=== PATIENT | male | born 1935 | race Caucasian/White ===

== ENCOUNTER 2017-01-13 08:52 | Emergency (ER) | payer OTHER, BC ==
[~2017-01-13] VITALS: Ht 188 cm; Wt 120.7 kg
[~2017-01-13 08:52] MED LIST: ASPIRIN E.C.81 M1 PO; ASPIRIN EC325 MG PO; CARDIZEM60 MG PO; CIPRO500 MG PO; Cordarone, Pacerone PO; DAILY VALUE1 EACH PO; FINASTERIDE5 MG PO; FLAGYL500 MG PO; FLOMAX0.4 MG PO; KEFLEX500 MG PO; METOPROLOL SUCC25 MG PO; NOHOMEMEDS; ODOR FREE GARL1 EAC1 PO; PACERONE200 M1 PO; PERCOCET 5/31 TABLET PO; VITAMIN D35000 UNIT PO
[2017-01-13] MEDS ORDERED: ODOR FREE GARL1 EACH PO (09:00)
[2017-01-13] MEDS ORDERED: ASPIR 8181 M1 PO (09:00)
[2017-01-13 09:19] LABS: ADD MIUA? YES; BILIRUBIN NEGATIVE; BLOOD NEGATIVE; COLOR YELLOW ((YELLOW)); GLUCOSE (STRIP) NEGATIVE; KETONES NEGATIVE; LEUKOCYTES TRACE; NITRITE NEGATIVE; PROTEIN (STRIP) 30; UROBILINOGEN 0.2 MG/DL (0.2-1.0)
[2017-01-13 09:26] LABS: BACTERIA 1+ /HPF; EPITHELIAL CELLS RARE /HPF; MUCUS 2+ /LPF; UCUL ADDED? NO
[2017-01-13 09:27] LABS: HEMATOCRIT 45.1 % (38.0-50.0); MCH 31.6 PG (29.0-34.0); MCHC 32.8 G/DL (30.0-36.0); MCV 96.2 FL (86-99); RBC DIS.WIDTH-CV 12.8 % (11.8-14.6); RBC DIS.WIDTH-SD 45.6 % (39-53); RED BLOOD COUNT 4.69 M/uL (4.00-5.50); WHITE BLOOD COUNT 12.1 K/uL (4.1-10.2)
[2017-01-13 09:44] LABS: CHLORIDE 105 mEq/L (99-109); POTASSIUM 4.6 mEq/L (3.7-5.4); SODIUM 141 mEq/L (136-147)
[2017-01-13 09:46] LABS: GLUCOSE 148 mg/dL (70-99)
[2017-01-13 09:48] LABS: ANION GAP 11 MEQ/L (2-14); TOTAL BILIRUBIN 0.9 mg/dL (0.0-1.0)
[2017-01-13 09:50] LABS: ALKALINE PHOSPHATASE 79 IU/L (3-129); GFR ESTIMATE (CALCULATED) > 59 mL/min/
[2017-01-13 09:51] LABS: UREA NITROGEN (BUN) 18 mg/dL (9-23)
[2017-01-13] MEDS ORDERED: FLOMAX0.4 MG PO (11:20)
[2017-01-13] MEDS ORDERED: CIPRO500 MG PO (11:20)
[2017-01-13] MEDS ORDERED: LORTAB 5-325 M1 EACH PO (11:20)
[2017-01-13 11:27] VITALS: BP 140/71
[2017-01-13 11:33] LABS: MEAN PLAT.VOLUME 11.4 uM^3 (9.0-12.4); PLATELET COUNT 223 K/uL (156-360)
== END 2017-01-13 11:36 | disposition home or self-care (01) ==
LOC: EME 08:52
PROVIDERS: Nurse Practitioner Family
DX: N13.2 Hydronephrosis with renal and ureteral calculous obstruction (principal); N39.0 Urinary tract infection, site not specified; K59.00 Constipation, unspecified; Z87.442 Personal history of urinary calculi; Z90.49 Acquired absence of other specified parts of digestive tract; Z79.82 Long term (current) use of aspirin; Z87.891 Personal history of nicotine dependence
CPT/HCPCS: 74020; 76770; 80053; 81003; 85027; 99281; 99284

== ENCOUNTER 2017-01-15 09:45 | Inpatient (IN) | payer OTHER, BC ==
[~2017-01-15] VITALS: Ht 188 cm; Wt 120.4 kg
[~2017-01-15 09:45] MED LIST changes: +ASPIR 8181 M1 PO; +LORTAB 5-325 M1 EACH PO; +ODOR FREE GARL1 EACH PO
[2017-01-15 11:24] LABS: EOSINOPHIL (%) 0 % (0-5); IMMATURE GRANULOCYTE (%) 0.6 % (0.0-0.7); IMMATURE GRANULOCYTE COUNT 0.1 K/uL; INSTRUMENT ABS NEUTROPHIL CT 14.4 K/uL; LYMPHOCYTE COUNT 0.9 K/uL (1.0-2.8); MCH 31.8 PG (29.0-34.0); MCHC 33.6 G/DL (30.0-36.0); MCV 94.8 FL (86-99); MONOCYTE (%) 9.7 % (3-12); MONOCYTE COUNT 1.7 K/uL (0-0.8); NEUTROPHIL (%) 84.1 % (45-76); NEUTROPHIL COUNT 14.4 K/uL (1.8-6.4); PLATELET COUNT 190 K/uL (156-360); RBC DIS.WIDTH-CV 12.5 % (11.8-14.6); RED BLOOD COUNT 4.43 M/uL (4.00-5.50)
[2017-01-15 11:32] LABS: WHITE BLOOD COUNT 17.1 K/uL (4.1-10.2)
[2017-01-15 11:38] LABS: CHLORIDE 105 mEq/L (99-109); POTASSIUM 4.4 mEq/L (3.7-5.4); SODIUM 138 mEq/L (136-147)
[2017-01-15 11:39] LABS: GLUCOSE 131 mg/dL (70-99)
[2017-01-15 11:41] LABS: ANION GAP 10 MEQ/L (2-14)
[2017-01-15 11:43] LABS: GFR ESTIMATE (CALCULATED) 42 mL/min/
[2017-01-15 11:44] LABS: TROP-I INTERPRETATION NEGATIVE; TROPONIN-I < 0.01 ng/mL (0.0-0.30)
[2017-01-15 11:44] LABS: UREA NITROGEN (BUN) 17 mg/dL (9-23)
[2017-01-15] MEDS ORDERED: CIPRO500 MG PO (13:45)
[2017-01-15] MEDS ORDERED: TAMSULOSIN HCL0.4 MG PO (13:46)
[2017-01-15] MEDS ORDERED: B COMPLETE1 EACH PO (13:47)
[2017-01-15] MEDS ORDERED: CICLODAN6.6 ML TP (13:50)
[2017-01-15] MEDS ORDERED: MACULAR VITAMI1 EACH PO (13:50)
[2017-01-15 14:27] LABS: ADD MIUA? NO; BILIRUBIN NEGATIVE; BLOOD NEGATIVE; COLOR YELLOW ((YELLOW)); GLUCOSE (STRIP) 50; KETONES 5; LEUKOCYTES NEGATIVE; NITRITE NEGATIVE; PROTEIN (STRIP) NEGATIVE; SPECIFIC GRAVITY 1.016 (1.000-1.030); UCUL ADDED? NO; UROBILINOGEN 0.2 MG/DL (0.2-1.0)
[2017-01-15 15:12] VITALS: BP 160/87
[2017-01-15 17:21] LABS: POINT-OF-CARE METER ID UU14149398
[2017-01-15 18:35] LABS: TROP-I INTERPRETATION NEGATIVE; TROPONIN-I < 0.01 ng/mL (0.0-0.30)
[2017-01-15 19:37] VITALS: BP 120/70
[2017-01-15 21:21] LABS: POINT-OF-CARE METER ID UU14149398
[2017-01-15 23:21] VITALS: BP 119/66
[2017-01-16] VITALS (8 sets, daily range): BP systolic 95–141; BP diastolic 56–97
[2017-01-16 01:40] LABS: TROP-I INTERPRETATION NEGATIVE; TROPONIN-I < 0.01 ng/mL (0.0-0.30)
[2017-01-16 06:46] LABS: ANION GAP 8 MEQ/L (2-14); CHLORIDE 106 MEQ/L (99-109); GFR ESTIMATE (CALCULATED) 57 mL/min/; GLUCOSE 119 mg/dL (70-99); POTASSIUM 4.2 MEQ/L (3.7-5.4); SAMPLE HEMOLYSIS CHECK 0; SAMPLE ICTERIC CHECK 0; SAMPLE LIPEMIA CHECK 0; SODIUM 138 MEQ/L (136-147); UREA NITROGEN (BUN) 16 mg/dL (9-23)
[2017-01-16 06:54] LABS: MCHC 33.3 G/DL (30.0-36.0); PLATELET COUNT 159 K/uL (156-360); RBC DIS.WIDTH-CV 12.6 % (11.8-14.6); RBC DIS.WIDTH-SD 44.2 % (39-53); RED BLOOD COUNT 3.75 M/uL (4.00-5.50); WHITE BLOOD COUNT 14.8 K/uL (4.1-10.2)
[2017-01-16 07:02] LABS: Estimated Average Glucose 123 mg/dL (70-123); HEMOGLOBIN A1c (GLYCOHEMOGLOB) 5.9 % HGB (Below 5.7)
[2017-01-16 07:58] LABS: POINT-OF-CARE METER ID UU14149398
[2017-01-16 14:12] LABS: POINT-OF-CARE METER ID UU13113675
[2017-01-16 17:09] LABS: POINT-OF-CARE METER ID UU14149398
[2017-01-16 21:16] LABS: POINT-OF-CARE METER ID UU14149398
[2017-01-17 03:51] VITALS: BP 108/64
[2017-01-17 06:34] LABS: EOSINOPHIL (%) 0.4 % (0-5); HEMATOCRIT 35.1 % (38.0-50.0); IMMATURE GRANULOCYTE (%) 0.6 % (0.0-0.7); IMMATURE GRANULOCYTE COUNT 0.1 K/uL; MCH 31.7 PG (29.0-34.0); MCHC 32.2 G/DL (30.0-36.0); MCV 98.6 FL (86-99); MEAN PLAT.VOLUME 11.9 uM^3 (9.0-12.4); MONOCYTE (%) 9.4 % (3-12); MONOCYTE COUNT 1.1 K/uL (0-0.8); NEUTROPHIL (%) 80.8 % (45-76); PLATELET COUNT 170 K/uL (156-360); RBC DIS.WIDTH-CV 12.7 % (11.8-14.6); RED BLOOD COUNT 3.56 M/uL (4.00-5.50); WHITE BLOOD COUNT 11.1 K/uL (4.1-10.2)
[2017-01-17 07:00] LABS: ANION GAP 9 MEQ/L (2-14); CHLORIDE 108 MEQ/L (99-109); GFR ESTIMATE (CALCULATED) > 59 mL/min/; GLUCOSE 107 mg/dL (70-99); MAGNESIUM 1.9 mg/dl (1.3-2.7); POTASSIUM 4.4 MEQ/L (3.7-5.4); SAMPLE HEMOLYSIS CHECK 0; SAMPLE ICTERIC CHECK 0; SAMPLE LIPEMIA CHECK 0; SODIUM 143 MEQ/L (136-147); UREA NITROGEN (BUN) 19 mg/dL (9-23)
[2017-01-17 07:02] LABS: TROP-I INTERPRETATION NEGATIVE; TROPONIN-I < 0.01 ng/mL (0.0-0.30)
[2017-01-17 07:18] VITALS: BP 117/74
[2017-01-17 08:35] LABS: POINT-OF-CARE METER ID UU13113807
[2017-01-17 11:32] VITALS: BP 112/67
[2017-01-17 12:21] LABS: POINT-OF-CARE METER ID UU14149398
[2017-01-17] MEDS ORDERED: KEFLEX500 MG PO (13:53)
== END 2017-01-17 14:50 | disposition home health service (06) | DRG 669 ==
LOC: EME 09:45 → 4SOUTH 13:51 → EDOF 13:51 → 4SOUTH 15:07
PROVIDERS: Emergency Medicine; Internal Medicine; Internal Medicine Cardiovascular Disease; Student in an Organized Health Care Education/Training Program
PROC: 0T778DZ Dilation of Left Ureter with Intraluminal Device, Via Natural or Artificial Opening Endoscopic (ICD-10-PCS; principal; 2017-01-16)
PROC: BT1FYZZ Fluoroscopy of Left Kidney, Ureter and Bladder using Other Contrast (ICD-10-PCS; principal; 2017-01-16)
PROC: 0TC78ZZ Extirpation of Matter from Left Ureter, Via Natural or Artificial Opening Endoscopic (ICD-10-PCS; principal; 2017-01-16)
DX: N13.6 Pyonephrosis (principal); I48.2 Chronic atrial fibrillation; I49.3 Ventricular premature depolarization; I10 Essential (primary) hypertension; E86.0 Dehydration; N17.9 Acute kidney failure, unspecified; S93.692A Other sprain of left foot, initial encounter; W19.XXXA Unspecified fall, initial encounter; R55 Syncope and collapse; R73.03 Prediabetes; K57.90 Diverticulosis of intestine, part unspecified, without perforation or abscess without bleeding; D71 Functional disorders of polymorphonuclear neutrophils; N40.0 Benign prostatic hyperplasia without lower urinary tract symptoms; K58.9 Irritable bowel syndrome, unspecified; R91.1 Solitary pulmonary nodule; Z87.891 Personal history of nicotine dependence; R65.10 Systemic inflammatory response syndrome (SIRS) of non-infectious origin without acute organ dysfunction
CPT/HCPCS: 71010; 73610; 73630; 74176; 80048; 81003; 82365 90; 82948; 83036; 83605; 83735; 84484; 85025; 85027; 87040; 93005; 94799; 99281; 99285; C1769; C1876; J0330; J0696; J1644; J1815; J2405; J3010; J7030; J7040; J7050